=== PATIENT | female | born 1935 | race Caucasian/White ===

== ENCOUNTER → 2017-11-04 | Outpatient (CLI) | payer MEDICARE, OTHER ==
[~2017-11-04] MED LIST: AMLODIPINE BESYL5 MG PO; BIOTIN PO; CALCIUM CITRATE PO; CO Q-10100 MG PO; COSAMIN ASU CA1 EACH PO; JENTADUETO 2.51 EACH PO; LEVEMIR100 UNIT/1 SQ; LIPOFEN150 MG PO; LOVAZA1 GM PO; METOPROLOL TAR100 MG PO; NABUMETONE500 MG PO; PROBIOTIC PO; SPIRONOLACTONE25 MG PO; SYNTHROID137 MCG PO
== END ==
LOC: CARD 11:41
PROVIDERS: ATTEND Family Medicine
DX: I35.0 Nonrheumatic aortic (valve) stenosis (principal)
CPT/HCPCS: 93306